=== PATIENT | female | born 1980 | race Caucasian/White ===

== ENCOUNTER → 2017-09-26 | Outpatient (CLI) | payer OTHER | LOC: LAB 10:00 | PROVIDERS: ATTEND Obstetrics & Gynecology Reproductive Endocrinology | DX: Z32.00 Encounter for pregnancy test, result unknown (principal) | CPT/HCPCS: 36415; 84144; 84702 ==

== ENCOUNTER → 2017-09-28 | Outpatient (REF) | payer OTHER | LOC: ZZSENDIN 11:36 | PROVIDERS: ATTEND Student in an Organized Health Care Education/Training Program | DX: O20.0 Threatened abortion (principal) | CPT/HCPCS: 84702 ==

== ENCOUNTER → 2017-09-30 | Outpatient (REF) | payer OTHER | LOC: ZZSENDIN 08:46 | PROVIDERS: ATTEND Student in an Organized Health Care Education/Training Program | DX: O20.0 Threatened abortion (principal) | CPT/HCPCS: 84702 ==

== ENCOUNTER → 2018-02-24 | Outpatient (REF) | payer OTHER | LOC: ZZSENDIN 12:11 | PROVIDERS: ATTEND Allergy & Immunology | DX: L50.1 Idiopathic urticaria (principal); Z91.018 Allergy to other foods | CPT/HCPCS: 86003 ==

== ENCOUNTER 2018-06-02 11:04 | Inpatient (IN) | payer OTHER ==
[~2018-06-02] VITALS: Ht 167.6 cm; Wt 79.8 kg
[2018-06-07] MEDS ORDERED: FAMOTIDINE(*) 20MG/50ML PREMIX 50 ML IVPB PRN (12:24)
[2018-06-07] MEDS: LR(*) 1000 ML BAG 1,000 ML IV SCH ×2 (12:24→17:39)
[2018-06-07] MEDS ORDERED: OXYTOCIN 30 UNIT/D5LR 500 ML 500 ML IV PRN (12:24)
[2018-06-07] MEDS ORDERED: LIDOCAINE 1% LOCAL 300 MG/30ML INJ PRN (12:25)
[2018-06-07] MEDS ORDERED: FLUSH 10 ML SYR IVP PRN (12:25)
[2018-06-07] MEDS ORDERED: LIDOCAINE/SOD BICARB 8.4% SYR SC PRN (12:25)
[2018-06-07] MEDS ORDERED: fentaNYL CITR 100 MCG/2 ML AMP IVP PRN (12:25)
[2018-06-07] MEDS ORDERED: METOCLOPRAMIDE 10 MG/2 ML SDV IVP PRN (12:25)
[2018-06-07] MEDS ORDERED: EPIDURAL KEYS XX PRN (12:40)
[2018-06-07] MEDS ORDERED: fentaNYL CITR 100 MCG/2 ML AMP IT PRN (12:40)
[2018-06-07] MEDS ORDERED: LIDO/EPI 2% MPF 1:200,000 20ML EPI PRN (12:40)
[2018-06-07] MEDS ORDERED: BUPIVACAINE 0.25% MPF INJ EPI PRN (12:40)
[2018-06-07] MEDS ORDERED: LIDOCAINE/PF 2% 200MG/10ML AMP 200 MG/10 ML AMPUL EPI PRN (12:40)
[2018-06-07] MEDS ORDERED: FENTANYL/ROPIVACAINE 100 ML BAG EPI PRN (12:40)
[2018-06-07] MEDS ORDERED: BUPIVACAINE 0.5% INJ 30ML VIAL EPI PRN (12:40)
[2018-06-07 13:02] LABS: PLATELET COUNT, AUTOMATED 210 K/uL (150-450)
[2018-06-07 13:06] VITALS: BP 123/73; BMI 28.4
[2018-06-07] MEDS ORDERED: PREN-127 PO (13:11)
[2018-06-07] MEDS ORDERED: ASPI81TA ASDIRECTED (13:11)
[2018-06-07] MEDS ORDERED: HERB1TAB PO (13:13)
--- NOTE | 2018-06-07 14:43 | Anesthesia OB Pre-Anes Eval ---
History of Present Illness Anesthesia Start Date: Jun 07, 2018 Anesthesia Start Time: 13:18 OB Anesthesia Diagnosis: spontaneous labor Complications: None known EDC: Jun 02, 2018 : 1 Para: 0 Vital Signs: Vital Signs Date Time Temp Pulse Resp B/P (MAP) Pulse Ox O2 Delivery O2 Flow Rate FiO2 06/07/18 13:06 97.5 67 22 123/73 (90) 99 Room Air Pain Ratin Heart Tones: WNL Result Diagram: 06/07/18 1250 Height (Inches): 66.00 Weight (Pounds): 176 BMI Calculated: 28.40 Past Medical History Medical History: no pertinent history Surgical History: tonsillectomy, other (ear) Previous Anesthesia: general Attended Childbirth Classes?: Yes, Other (at [facility] but don't remember the anesthesia talk.) Hx Anesthesia Reactions: No Hx Family Anesthesia Reaction: No Home Meds Reported Medications Herbal Drugs (MAXIMUM ENERGY) 1 Each Tablet, 1 EACH PO DAILY 06/07/18 Aspirin ([place] Aspirin) 81 Mg Tab.chew, 81 ASDIRECTED NIDIA 06/07/18 Vits W-Ca,Fe,Fa(<1MG) ( VITAMINS) 1 Each Tablet, 1 EACH PO DAILY, TAB 06/07/18 Allergies: Coded Allergies: penicillin V (Verified Allergy, Unknown, UNKNOWN, 06/07/18) Anesthesia OB ROS Neurological: No migraines/headaches, No seizures, No neuropathy Eyes ROS: contacts in Contacts Statement: Patient agrees to continued use of contacts if general anesthesia is required. ENT: Denies Tooth caps, Denies Loose teeth, Denies Chipped teeth, Denies [place] ures, Denies Bridges, Denies Retainers, Denies Veneers, Denies Implants, Denies Tongue ring, Denies Other Pulmonary: No asthma, No smoker (pks/day/yrs) Airway Class: ll Cardiovascular ROS: No edema, No arrhythmia GI ROS: clear liquids Last Solids Date: Jun 07, 2018 Last Solids Time: 07:00 ROS: No Herpes, No STD(s), No Liver Disease, No Renal Disease Endocrine ROS: No diabetes, No gestational diabetes, No thyroid disorder Musculoskeletal ROS: No low back pain, No low back injury, No scoliosis ASA Classification: 2 Assessment and Plan Anesthesia Plan: CSE Assessment Past Medical, Surgical, Family and Obstetric Histories reviewed. Please see ACOG chart. Very thoroughly explained epidural anesthesia risks, complications and benefits explained to patient's satisfaction for labor and vaginal delivery and/or section. Also discussed General anesthesia risks and benefits explained to patient's satisfaction. Questions invited, none asked. RAHUL MARSHALL GENETIC COUNSELLOR Jun 07, 2018 14:43
--- NOTE | 2018-06-07 14:48 | Procedure Note ---
Anesthetic Placement Note Anesthesia Plan: CSE Permit for Anesthesia Signed: Yes Anesthesia Technique: Patient Sitting Anesthesia Prep: Chlorhexidine Interspace: L 3-4 Local Anesthetic: 1% Lidocaine, 25 Gauge Needle Amount Local - cc's: 2 Anesthesia Needle: 17g Touhy/Schliff Anesthesia Attempts: 1 Loss of Resistance: Air Depth of BONNIE (cm): 5 Epidural Needle Placement: No CSF, No Blood, No Parasthesia Intrathecal Needle: 27 Gauge Pencan Cerebral Spinal Fluid: Yes, Clear Catheter Insertion (cm): 8 Catheter Type: Daniels - Spring Wound Epidural Dressing: Tegaderm, Tape, Adhesive [place] Anesthesia Tray: Lot Number ([id number]), Expiration Date (2019-05-20), Reference Number (2019-05-20) Anesthesia Medications: Intrathecal Dose: mcg Fentanyl (15), mg Marcaine MPF (1.75), Time (1340) Epidural Test Dose: 1.5 Lido/Epi (1:200,000), Dose - mL (3), Time (1403), Negative Epidural Loading Dose: 0.2% Ropivicaine, With Fentanyl 2mcg/ml, Dose - ml (5) Epidural Infusion: 0.2% Ropivicaine, With Fentanyl 2mcg/ml, Start Time: (1403) Epidural Pump Setting: Bolus Dose - mL (5), Lockout - Minutes (20), Maintenance Rate - mL/hr (6), Maximum per Hour - mL (21) Complications: None Comment: Pt. leaving tub and returning to bed. She was able to sit and maintain position. After intrathecal, she became comfortable within 5 minutes. Minimal itching noted. Pt. immediately began to rest/sleep. RAHUL MARSHALL OPERATIONS AND MAINTENANCE SPECIALIST Jun 07, 2018 14:48
--- NOTE | 2018-06-07 14:49 | Anesthesia Progress Note ---
Progress/Maintenance Anesthesia Note Date: Jun 07, 2018 Anesthesia Note Time: 14:40 Pain Intensity: 1 Pump: On Pump Rate (ML/HR): 6 Sensory Level: T-12 Motor Level: Bending Knees-Bilateral Dilatation: 8 Position: Right, Tilt Assessment and Plan Assessment Assisted to turn to right side. Left leg heavier than rt. States she slightly feels contractions. RAHUL MARSHALL CRNA Jun 07, 2018 14:49
--- NOTE | 2018-06-07 19:23 | Anesthesia Progress Note ---
Progress/Maintenance Anesthesia Note Date: Jun 07, 2018 Anesthesia Note Time: 19:00 Pain Intensity: 5 Pump: On Pump Rate (ML/HR): 6 Sensory Level: T-12 Motor Level: Bending Knees-Bilateral, Other (Pushing) Dilatation: 10 Position: Semi-Fowlers Drug Bolus: 0.5% Marcaine (5 ml), Other (Fentenyl 85 mcgs) Assessment and Plan Assessment Pt. has used the bolus several times with relief. Now she is tired from pushing and plans are to "labor down". Bolus given manually of 5 ml 0,5% Marcaine plain. RAHUL MARSHALL CRNA Jun 07, 2018 19:23
--- NOTE | 2018-06-07 21:27 | Anesthesia Progress Note ---
Progress/Maintenance Anesthesia Note Date: Jun 07, 2018 Anesthesia Note Time: 21:00 Pain Intensity: 0 Pump: Off Sensory Level: t-12 Motor Level: Bending Knees-Bilateral Dilatation: 10 Position: Semi-Fowlers Drug Bolus: 0.5% Marcaine (5 ML ) Assessment and Plan Assessment Additional 5 ml of 0.5% Marcaine plain given. Physician planning to use forceps for delivery. Pt. tolerated delivery and repair work very well. Empty syringe attached to epidural catheter and RN agrees to remove with ambulation. Patient instructed the first ambulation is to be with help of nursing staff. Instructed to preform deep knee bends at bedside before walking. Anesthesia Stop Day: Jun 07, 2018 Anesthesia Stop Time: 21:00 RAHUL MARSHALL CRNA Jun 07, 2018 21:27
--- NOTE | 2018-06-07 21:38 | History & Physical ---
History of Present Illness Age of Patient: 37 : 1 Para or TPAL: 0 EDC per LMP: Jun 02, 2018 Estimated Gestational Age: 40 Chief Complaint labor History of Present Illness Admitted for spontaneous labor. was complicated by AMA with a normal Materni-21 testing and monthly growth scans. She does have a uterine fibroid but did not cause any issues during . Past Medical, Surgical, Family and Obstetric Histories reviewed. Please see [facility] chart. History Patient's Blood Type: O Positive Rubella Status: Immune Group B Strep Screen: Negative Allergies: Coded Allergies: penicillin V (Verified Allergy, Unknown, UNKNOWN, 06/07/18) Med Rec Home Meds Reported Medications Herbal Drugs (MAXIMUM ENERGY) 1 Each Tablet, 1 EACH PO DAILY 06/07/18 Aspirin ([place] Aspirin) 81 Mg Tab.chew, 81 ASDIRECTED NIDIA 06/07/18 Vits W-Ca,Fe,Fa(<1MG) ( VITAMINS) 1 Each Tablet, 1 EACH PO DAILY, TAB 06/07/18 Review of Systems All Systems Reviewed/Normal: Yes, Except as Noted Exam General Exam Vital Signs Vital Signs Date Time Temp Pulse Resp B/P (MAP) Pulse Ox O2 Delivery O2 Flow Rate FiO2 06/07/18 13:06 97.5 67 22 123/73 (90) 99 Room Air General Apperance: Alert/Awake/No Acute Distress Neuro: No Gross deficits Cardiovascular: Regular Rate and Rhythm Respiratory: No Respiratory Distress Abdomen: Soft, Non-Tender, Non-Distended Extremities: No Cyanosis,Clubbing or Edema Integumentary: Skin Intact without Lesions or Rash Psychological: Alert & Oriented X3 Cervical Dialation: 5 Cervical Effacement (%): 100 Fetus Heart Tone Variabilty: Moderate FHT Accelerations: 15X15 FHT Category: I Medical Decision Making Data Points Result Diagram: 06/07/18 1250 VTE Prophylasis: Adult Deep Vein Thrombosis/Pulmonary: No Pharmacological Contraindicati: Pt at Low Risk for VTE Mechanical Contraindications: Pt at Low Risk for VTE Assessment and Plan SENIOR FINANCIAL REPORTING ACCOUNTANT Plan: Routine Labor Care Problems: (1) 40 weeks gestation of SANTA MARTIN MD Jun 07, 2018 21:38
--- NOTE | 2018-06-07 21:46 | OB Delivery Note ---
Delivery Note Vaginal Delivery Type: Forceps (closed simpsons), Low (+2+3 station) Delivery Date: Jun 07, 2018 Delivery Time: 20:57 Estimated Gestational Age(wks): 40.5 Indication (if vag op): maternal exhaustion Delivery Anesthesia: Epidural Sex: Male Weight (gms): 3314 [place] Apgars: 1 Minute (7), 5 Minute (8) Repair Needed: Laceration, 3rd Degree Estimated Blood Loss: 500 Delivery Complications: Nuchal Cord (x1), Other (true knot in cord) Notes: Presented in labor and progressed from 5 cm to 9 cm rapidly. Epidural recieved and tolerated well. Complete at 1646 and felt to be posterior on exam. Pushing for 2 hours with little progress and poor effort by approx 2030. Consent for forceps operative vaginal delivery obtained after informed consent. R/B/A reviewed in detail and questions answered. Parents decided they wanted as sistance. Closed Simpsons selected and easily applied. Peres catheter was indwelling and removed with forceps application. Station was 2+/3 and felt to be slightly ROP. Over next 4 contractions, assistance provided with steady progress. Head delivered with assistance over third degree laceration. Nuchal cord x 1 noted and a true knot. Anal capsule repaired with 2-0 Vicryl. Rest of repair with 2-0 Chromic with excellent result and no complications. Placenta was spontaneously delivered intact. Human Resources Advisor in Attendence: No Copies to: SANTA MARTIN MD ; SANTA MARTIN MD Jun 07, 2018 21:46
[2018-06-07 23:08] VITALS: BP 94/53
[2018-06-07] MEDS ORDERED: HYDROmorphone HCL 2 MG TAB PO PRN (23:45)
[2018-06-07] MEDS ORDERED: MEASLES,MUMP,RUBELLA VAC 0.5ML SC ONE (23:45)
[2018-06-07] MEDS ORDERED: APAP/HYDROCODONE 325/5 TAB PO PRN (23:45)
[2018-06-07] MEDS ORDERED: GLYCERIN/WITCH HAZEL LEAF 1 PK TOP PRN (23:45)
[2018-06-07] MEDS ORDERED: INFLUENZA VIRUS VAC 0.5ML SYR IM ONLY ONE (23:45)
[2018-06-07] MEDS ORDERED: DIPHTH/TETANUS/ACEL. PERTUSSIS IM ONE (23:45)
[2018-06-07] MEDS ORDERED: HYDROCORTISONE 2.5% CR 30GM TB PR PRN (23:45)
[2018-06-07] MEDS ORDERED: LANOLIN OINT 7 GM TUBE TP PRN (23:45)
[2018-06-07] MEDS ORDERED: ACETAMINOPHEN 325 MG TAB PO PRN (23:45)
[2018-06-08] VITALS (7 sets, daily range): BP systolic 94–117; BP diastolic 52–72
[2018-06-08] MEDS: IBUPROFEN 800 MG TAB PO SCH ×4 (00:25→16:47)
[2018-06-08] MEDS: BENZOCAINE 20% 60 ML BTL TP PRN (02:44)
[2018-06-08] MEDS ORDERED: LR(*) 1000 ML BAG 1,000 ML ONE (06:12)
[2018-06-08] MEDS: DOCUSATE CALCIUM 240 MG CAP PO SCH (08:46)
--- NOTE | 2018-06-08 14:21 | Anesthesia Post Eval Note ---
Anesthesia Post Eval Note Vital Signs Date Time Temp Pulse Resp B/P (MAP) Pulse Ox O2 Delivery O2 Flow Rate FiO2 06/08/18 12:23 98.2 18 107/68 (81) 98 Room Air 06/08/18 08:48 94 Pt able to participate in Eval: Yes Cardiovascular Status: Satisfactory Respiratory Status: Satisfactory Pain Managment: Satisfactory PO Nausea/Vomiting: Satisfactory Temperature Management: Satisfactory Mental Status: Satisfactory, Alert, Oriented X3 Post-Op Hydration Status: Satisfactory, Tolerating PO Well, Voiding w/o Difficulty Anesthesia Type: CSE Anesthesia Tolerance: Tolerated procedure well without apparent anesthetic complications. LP site clear, no redness or edema. Denies headache or any residual paresthesia. Vital Signs Stable, Patient comfortable and condition stable. RAHUL MARSHALL CRNA Jun 08, 2018 14:21
[2018-06-09] MEDS: DOCUSATE CALCIUM 240 MG CAP PO SCH ×2 (00:42→08:25)
[2018-06-09] MEDS: IBUPROFEN 800 MG TAB PO SCH ×2 (00:42→08:25)
[2018-06-09 03:00] VITALS: BP 98/54
[2018-06-09 06:40] LABS: PLATELET COUNT, AUTOMATED 155 K/uL (150-450)
--- NOTE | 2018-06-09 07:04 | OB/GYN Progress Note ---
OB Subjective Progress Notes Subjective Doing well. Pain well controlled and ambulating. Bladder control is an issue when getting up. GI: NEG Nausea : Voiding Well, Other (poor control) Pain: Mild OB Objective Physical Exam Vital Signs Date Time Temp Pulse Resp B/P (MAP) Pulse Ox O2 Delivery O2 Flow Rate FiO2 06/09/18 05:45 16 06/09/18 03:00 98.6 98/54 (69) Room Air 06/08/18 12:23 98 06/08/18 08:48 94 Intake and Output 06/09/18 07:00 Intake Total 120 ml Output Total 300 ml Balance -180 ml Intake Oral 120 ml Output Urine Total 300 ml # Voids 4 General Appearance: Alert/Awake/No Acute Distress Neurological: No Gross deficits Cardiovascular: Normal Rhythm & Peripheral Pulses, Regular Rate and Rhythm Respiratory: No Respiratory Distress, Clear to Auscultation Abdomen: Soft, Non-Tender, Non-Distended, Fundus Firm, Non-Tender Extremities: No Cyanosis,Clubbing or Edema Integumentary: Skin Intact without Lesions or Rash Psychological: Alert & Oriented X3 Result Diagram: 06/09/18 0536 Assessment and Plan SPRAY TECHNICIAN Plan: Routine Post- Care, Discharge Home Today Problems: (1) 40 weeks gestation of (2) Anemia due to acute blood loss Assessment & Plan: Will start iron supplement and continue PNVs. She is stable here. (3) care and examination immediately after delivery Assessment & Plan: reviewed precautions and instructions. Home later today if continues well. SANTA MARTIN MD Jun 09, 2018 07:04
[2018-06-09] MEDS ORDERED: FERR-53 PO (07:05)
[2018-06-09] MEDS ORDERED: LOR5/325 PO (07:05)
[2018-06-09] MEDS ORDERED: IBUP800T37 PO (07:05)
--- NOTE | 2018-06-09 07:07 | OB/GYN Discharge Summary ---
Discharge Summary Reason for Hosp/Final Diag: (1) 40 weeks gestation of (2) Anemia due to acute blood loss Hospital Course & Plan: Will start iron supplement and continue PNVs. She is stable here. (3) care and examination immediately after delivery Hospital Course & Plan: reviewed precautions and instructions. Home later today if continues well. Lates Vital Signs Vital Signs Date Time Temp Pulse Resp B/P (MAP) Pulse Ox O2 Delivery O2 Flow Rate FiO2 06/09/18 05:45 16 06/09/18 03:00 98.6 98/54 (69) Room Air 06/08/18 12:23 98 06/08/18 08:48 94 Weight (Pounds): 176 Result Diagram: 06/09/18 0536 Condition: Improved Discharge: Home, Self Alf Meds Active Scripts Ferrous Sulfate (FERROUS SULFATE) 325 Mg Tablet, 1 TAB PO DAILY, #30 TAB 1 Refill Prov:SANTA MARTIN MD 06/09/18 Ibuprofen (IBUPROFEN) 800 Mg Tablet, 800 MG PO Q8H PRN for PAIN, #20 TAB 0 Refills Prov:SANTA MARTIN MD 06/09/18 Hydrocodone Bit/Acetaminophen (HYDROCODON-ACETAMINOPHEN 5-325) 1 Each Tablet, 1- 2 EACH PO Q4H PRN for PAIN, #10 TAB 0 Refills Prov:SANTA MARTIN MD 06/09/18 Reported Medications Herbal Drugs (MAXIMUM ENERGY) 1 Each Tablet, 1 EACH PO DAILY 06/07/18 Aspirin ([place] Aspirin) 81 Mg Tab.chew, 81 ASDIRECTED NIDIA 06/07/18 Vits W-Ca,Fe,Fa(<1MG) ( VITAMINS) 1 Each Tablet, 1 EACH PO DAILY, TAB 06/07/18 Follow up Referrals: CLINICAL DERMATOLOGIST - In 6 Weeks @ [facility] with SANTA MARTIN MD Follow up in: 6 wks PP or PO Discharge Diet: As Tolerates Discharge Activity: As Tolerates, No Heavy Lifting x 6 wks, No Heavy Lifting > 10lb, Pelvic Rest Copies to: SANTA MARTIN MD ; SANTA MARTIN MD Jun 09, 2018 07:07
[2018-06-09 09:00] VITALS: BP 106/72
[2018-06-09] MEDS ORDERED: FERROUS SULFATE 325 MG TAB PO SCH (09:00)
[2018-06-09 09:32] VITALS: Ht 167.6 cm; Wt 79.8 kg
[2018-06-09] MEDS: BENZOCAINE 20% 60 ML BTL TP PRN (14:52)
== END 2018-06-09 14:15 | disposition home or self-care (01) | DRG 775 ==
LOC: OB 06-07 11:36 → PED 06-08 10:51
PROVIDERS: ADMIT Obstetrics & Gynecology; ATTEND Obstetrics & Gynecology
PROC: 10D07Z8 Extraction of Products of Conception, Other, Via Natural or Artificial Opening (ICD-10-PCS; principal; 2018-06-07)
PROC: 0DQR0ZZ Repair Anal Sphincter, Open Approach (ICD-10-PCS; 2018-06-07)
DX: O34.13 Maternal care for benign tumor of corpus uteri, third trimester (principal); O70.20 Third degree perineal laceration during delivery, unspecified; D62 Acute posthemorrhagic anemia; O69.81X0 Labor and delivery complicated by cord around neck, without compression, not applicable or unspecified; O69.2XX0 Labor and delivery complicated by other cord entanglement, with compression, not applicable or unspecified; O75.81 Maternal exhaustion complicating labor and delivery; Z3A.40 40 weeks gestation of pregnancy; Z37.0 Single live birth; O90.81 Anemia of the puerperium
CPT/HCPCS: 36415; 85025; 86850; 86900; 86901; J3010; J7120; S0020